=== PATIENT | female | born 2005 | race Caucasian/White ===

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

== ENCOUNTER 2024-01-29 19:17 | Emergency (ER) | payer OTHER, SELFPAY ==
[2024-01-29] VITALS (8 sets, daily range): BP systolic 119–140; BP diastolic 71–92; PULSE 88–103; RESP 18–22; TEMP 36.6–37.7; O2SAT 97–100; BMI 17.7
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
== END 2024-01-29 21:10 | disposition home or self-care (01) ==
PROVIDERS: Emergency Provider Emergency Medicine Emergency Medical Services; Visit Provider Emergency Medicine Emergency Medical Services
DX: S09.90XA Unspecified injury of head, initial encounter (principal); V48.5XXA Car driver injured in noncollision transport accident in traffic accident, initial encounter
CPT/HCPCS: 70450; 72125; 94761; 99284; 99291

== ENCOUNTER 2024-10-10 12:16 | Outpatient (CLI) | payer OTHER, SELFPAY | END 2024-10-10 12:17 | disposition home or self-care (01) | LOC: NFLDREF 10-12 01:50 | PROVIDERS: Visit Provider Physician Assistant | DX: N39.0 Urinary tract infection, site not specified (principal); B96.20 Unspecified Escherichia coli [E. coli] as the cause of diseases classified elsewhere | CPT/HCPCS: 87086 ==